=== PATIENT | female | born 1980 | race Caucasian/White ===

== ENCOUNTER 2019-06-29 12:58 | Emergency (ER) | payer MEDICAID, OTHER ==
[2019-06-29 13:25] VITALS: BP 129/88
--- NOTE | 2019-06-29 13:41 | ED Physician Documentation ---
PD HPI UPPER EXT INJURY - Stated complaint Stated Complaint: LT HAND PX - Chief complaint Chief Complaint: Ext Problem - History obtained from History obtained from: Patient - History of Present Illness Location: Left, Finger Type of injury: Twist (twisted finger playing with dog) Where injury occurred: Home Timing - onset: How many days ago (4) Timing - details: Abrupt onset Worsened by: Moving Associated symptoms: Swelling. No: Weakness, Numbness Similar symptoms before: Has not had sx before Review of Systems Skin: denies: Abrasion (s), Laceration (s) Neurologic: denies: Focal weakness, Numbness PD PAST MEDICAL HISTORY - Past Medical History Past Medical History: No - Allergies Allergies/Adverse Reactions: Allergies Allergy/AdvReac Type Severity Reaction Status Date / Time adhesive tape Allergy Itching Verified 06/29/19 13:23 ciprofloxacin [From Cipro] Allergy Dizziness Verified 06/29/19 13:23 Latex, Natural Rubber Allergy Hives Verified 06/29/19 13:23 Sulfa (Sulfonamide Allergy Itching Verified 06/29/19 13:23 Antibiotics) PD ED PE NORMAL - Vitals Vital signs reviewed: Yes - General General: Alert and oriented X 3, No acute distress, Well developed/nourished - Derm Derm: Normal color, Warm and dry - Extremities Extremities: Other (left ring finger with tenderness and some swelling at PIP joint, without notable laxity on collateral stress testing. ) - Neuro Neuro: No motor deficit (but hurts with ROM. ), No sensory deficit Results - Vitals Vitals: Oxygen O2 Source Room air - Rads (name of study) left ring finger Radiology: Prelim report reviewed (no fracture), See rad report Departure - Departure Disposition: 01 Home, Self Care Clinical Impression: Finger sprain Qualifiers: Encounter type: initial encounter Finger: ring finger Sprain of finger site: interphalangeal joint Laterality: left Qualified Code(s): S63.635A - Sprain of interphalangeal joint of left ring finger, initial encounter Condition: Stable Record reviewed to determine appropriate education?: Yes Instructions: ED Sprain Finger Follow-Up: Rafa Gonsalez ARNP [Primary Care Provider] - Comments: No fractures seen. Presume a sprain and we can treated with a finger splint with gentle range of motion periodically. Some anti-inflammatory such as ibuprofen 3 times a day and add Tylenol if needed. This should feel better being protected and splinted. I would anticipate improvement over the next several days and resolved within a week. Recheck if not. Discharge Date/Time: 06/29/19 14:32
[2019-06-29] MEDS ORDERED: IBUPROFEN 600 MG TABLET PO STA (14:01)
--- NOTE | 2019-06-29 14:26 | XRAY Report ---
Reason: Trauma Procedure Date: 06/29/2019 Accession Number: [id number] / [id number] Procedure: XR - Finger(s) LT CPT Code: Final Report FULL RESULT: EXAM: LEFT FOURTH DIGIT RADIOGRAPHY EXAM DATE: 06/29/2019 01:49 PM. CLINICAL HISTORY: Trauma. Injury to the PIP joint. COMPARISON: XR FINGER MIN 2 VIEWS 12/31/2011 6:12 PM. TECHNIQUE: 3 views. FINDINGS: Bones: No fracture or bone destruction. Joints: Normal. No subluxations. Soft Tissues: No soft tissue foreign body. IMPRESSION: No fracture. RADIA
== END 2019-06-29 14:32 | disposition home or self-care (01) ==
LOC: ED 12:58
DX: S63.635A Sprain of interphalangeal joint of left ring finger, initial encounter (principal); X50.1XXA Overexertion from prolonged static or awkward postures, initial encounter; Y93.89 Activity, other specified; Y92.009 Unspecified place in unspecified non-institutional (private) residence as the place of occurrence of the external cause
CPT/HCPCS: 73140; 99283; A9270

== ENCOUNTER 2022-11-22 08:39 | Outpatient (CLI) | payer OTHER ==
[2022-11-22 12:06] LABS: PT - PROTHROMBIN TIME 10.9 secs (9.9-12.6)
[2022-11-22 12:11] LABS: HCT - HEMATOCRIT 43.8 % (37.0-47.0); HGB - HEMOGLOBIN 14.4 g/dL (12.0-16.0); MEAN CORPUSCULAR HGB CONC 32.9 g/dL (32.0-36.0); MEAN CORPUSCULAR VOLUME 97.3 fL (81.0-99.0); MEAN PLATELET VOLUME 9.7 fL (7.9-10.8); RED BLOOD COUNT 4.5 10^6/uL (4.20-5.40); RED CELL DISTRIBUTION WIDTH 14.1 % (12.0-15.0); WHITE BLOOD COUNT 5.4 x10^3/uL (4.8-10.8)
[2022-11-22 12:32] LABS: ALBUMIN 4.5 g/dL (3.2-5.5); ALBUMIN/GLOBULIN RATIO 1.8 (1.0-2.2); BILIRUBIN,TOTAL 0.6 mg/dL (0.2-1.0); CALCIUM 9.4 mg/dL (8.5-10.3); CREATININE 0.6 mg/dL (0.6-1.3); POTASSIUM 3.8 mmol/L (3.5-4.5)
== END 2022-11-22 08:40 | disposition home or self-care (01) ==
LOC: LAB.N 08:39
PROVIDERS: ATTEND Specialist
DX: I77.6 Arteritis, unspecified (principal)
CPT/HCPCS: 36415; 80053; 85027; 85610

== ENCOUNTER 2023-03-08 09:45 | Outpatient (CLI) | payer OTHER ==
--- NOTE | 2023-03-08 15:13 | XRAY Report ---
PROCEDURE: Toe(s) 2+V LT INDICATIONS: CONTUSION OF LEFT LESSER TOE(S) TECHNIQUE: 3 views of the left second toe(s) acquired. COMPARISON: None. FINDINGS: Bones: No fractures or dislocations. No suspicious bony lesions. Soft tissues: No suspicious soft tissue densities. IMPRESSION: No acute bony abnormality. No periosteal reaction or callus to suggest healing fracture. Reviewed by: Theodora Miguel MD on 03/08/2023 3:12 PM PST Approved by: Theodora Miguel MD on 03/08/2023 3:12 PM PST Station ID: [id number]
== END 2023-03-08 10:00 | disposition home or self-care (01) ==
LOC: DI.N 09:45
PROVIDERS: ATTEND Physician Assistant Medical
DX: S90.122A Contusion of left lesser toe(s) without damage to nail, initial encounter (principal)
CPT/HCPCS: 73660